=== PATIENT | male | born 1970 | race Caucasian/White ===

== ENCOUNTER 2021-05-06 15:05 | Emergency (ER) | payer OTHER, SELFPAY ==
[2021-05-06] VITALS (7 sets, daily range): BP systolic 170–195; BP diastolic 98–102; PULSE 60–79; RESP 20; TEMP 37; O2SAT 97–99; BMI 26.5
--- NOTE | 2021-05-06 15:24 | ED_ITS ---
HPI - Extremity Problem General Chief complaint: Extremity Problem,Nontraumatic Stated complaint: [place], pain in left arm Time Seen by Provider: 05/06/21 15:21 Source: patient and family Mode of arrival: Ambulatory Limitations: no limitations History of Present Illness HPI Narrative: This is a 51-year-old male who comes with complaint of left upper extremity pain which has been present for the past 2 weeks intermittent will typically have episodes of 30 seconds to 1 minute that then start to improve. He gets tightness in his arm the upper arm like a blood pressure cuff that super tight. He states he gets numbness and spasming of his hand and fingers and the 4th and 5th fingers will sometimes have a bluish discoloration. Patient states he did have an injury to the artery in his hand just at the base of the palm. He states that they attempted to reopen it because it was blocked. He states that this was unsuccessful any year later he was re-evaluated they thought he had a blood clot put him on anticoagulation for 3 months and then to cleared him medically cleared. Patient states the initial injury was from sitting in a shower with both hands down pushing up from prolonged. And his 2nd episode seemed to be caused by closing the tailgate of a truck with his hand. Patient states he has not had any additional injuries. He does take Depakote for bipolar, Ambien, Xanax and Janumet for diabetes. Besides the intervention on his arm he has not had any prior surgeries. He is allergic to penicillin, Keflex, abuse and chocolate. Smokes a pack per day, denies EtOH or any illicit drugs or IV drugs. He states he was seen at the hospital in [place], [place] in 2018 and 2019. Related Data Previous Rx's Medication Instructions Recorded oxycodone 5 mg tablet 5 mg PO QID PRN #10 tab 05/06/21 Allergies Allergy/AdvReac Type Severity Reaction Status Date / Time cephalexin [From Keflex] Allergy Verified 05/06/21 17:34 Penicillins Allergy Verified 05/06/21 17:34 Review of Systems Review of Systems ROS Unobtainable: All systems reviewed & are unremarkable except as noted in HPI and below Patient History Social History Smoking Status: Current every day smoker Smoking Status: Current every day smoker alcohol intake frequency: 0-2 drinks per day Substance Use Type: does not use Exam Narrative Exam Narrative: GENERAL: Alert and oriented x three, male in mild distress. Patient did have an episode while I was evaluating him and does appear uncomfortable. HEENT: Head normocephalic, atraumatic, EOMI, pupils reactive, face symmetric, moist mucous membranes NECK: Supple, full range of motion CARDIOVASCULAR: Regular rate and rhythm without murmurs, rubs or gallops. RESPIRATORY: Breath sounds equal bilaterally, no wheezes rales or rhonchi. ABDOMEN: Soft, nontender. Normoactive bowel sounds all 4 quadrants. No guarding or rebound, rigidity, no mass : No CVA tenderness EXTREMITIES: Normal range of motion, no clubbing or edema. Neurovascularly intact. Patient has cap refill less than 2 seconds in all 10 fingers. He has 2+ radial pulse bilaterally. He has full range of motion but while he states his arm is spasming he does appear to have some curling of his fingers particularly 2nd 4th but I can easily straighten them. 5/5 muscle strength. Patient does not have any obvious discoloration that I can appreciate on exam. NEUROLOGICAL: Cranial nerves II through XII grossly intact. Moving all extremities SKIN: Warm, dry, no petechiae, no rashes or lesions. Initial Vital Signs Initial Vital Signs: Vital Signs Temperature 98.6 F 05/06/21 15:13 Pulse Rate 79 05/06/21 15:13 Respiratory Rate 20 05/06/21 15:13 Blood Pressure 195/102 H 05/06/21 15:13 Pulse Oximetry 99 05/06/21 15:13 Course Orders Ordered: ED Orders 05/06/21 15:18 Complete Blood Count AUTO DIFF Stat Comprehensive Metabolic Panel Stat D Dimer Stat Lipase Stat Partial Thromboplastin Time Stat Prothrombin Time INR Stat Troponin & CK Cardiac Panel Stat 05/06/21 15:27 XR chest 1V Stat 05/06/21 16:03 US periph venous up extrem lt Stat Discontinued Medications Morphine Sulfate (Morphine 4 Mg/Ml Inj) 4 mg IV NOW ONE Stop: 05/06/21 17:28 Last Admin: 05/06/21 17:33 Dose: 4 mg Documented by: MARSHA Vital Signs Vital signs: Vital Signs - 8 hr 05/06/21 15:13 05/06/21 15:48 05/06/21 16:00 Temperature 98.6 F Pulse Rate 79 62 74 Respiratory Rate 20 Blood Pressure 195/102 H Pulse Oximetry 99 98 99 05/06/21 16:30 05/06/21 17:00 05/06/21 17:30 Temperature Pulse Rate 60 60 68 Respiratory Rate Blood Pressure Pulse Oximetry 99 97 98 05/06/21 17:31 Temperature Pulse Rate 64 Respiratory Rate Blood Pressure 170/98 H Pulse Oximetry 98 MDM - Extremity (Nontraumatic) Lab Data Result diagrams: 05/06/21 15:18 05/06/21 15:18 Labs: Lab Results 05/06/21 05/06/21 05/06/21 Range/Units 15:18 15:18 15:18 WBC 10.7 (4.5-11.0) X10^3/uL RBC 4.53 (4.5-5.9) X10^6/uL Hgb 13.7 (13.5-17.5) g/dL Hct 40.2 L (41-53) % MCV 88.7 (80-100) fL MCH 30.3 (26-34) PG MCHC 34.1 (30-36) % RDW 13.6 (11.6-14.8) % Plt Count 155 (150-400) X10^3/uL Neut % (Auto) 48.7 L (50-75) % Lymph % (Auto) 36.8 (25-40) % [place] % (Auto) 11.1 (3-14) % Eos % (Auto) 2.1 (2-4) % Baso % (Auto) 1.3 (0-2) % Neut # (Auto) 5200 (0213-4692) /uL Lymph # (Auto) 4000 (1655-0561) /uL [place] # (Auto) 1200 H (0-900) /uL Eos # (Auto) 200 (0-450) /uL Baso # (Auto) 100 (0-100) /uL PT 11.8 (10.1-12.7) SECONDS INR 1.1 (0.9-1.3) APTT 32 (26.4-36.2) SECONDS D-Dimer < 200 (<230) ng/mL Sodium (137-145) mmol/L Potassium (3.4-5.1) mmol/L Chloride (98-107) mmol/L Carbon Dioxide (22-32) mmol/L BUN (9-20) mg/dL Creatinine (0.66-1.25) mg/dL Estimated GFR (>60) mL/min BUN/Creatinine Ratio (6-22) Glucose (70-100) mg/dL Calcium (8.4-10.2) mg/dL Total Bilirubin (0.2-1.3) mg/dL AST (17-59) IU/L ALT (<50) IU/L Alkaline Phosphatase (38-126) U/L Total Creatine Kinase (55-170) U/L CK-MB (CK-2) (<2.37) ng/mL CK-MB (CK-2) Rel Index (1.5-5.0) % Troponin I (0.01-0.034) ng/mL Total Protein (6.3-8.2) g/dL Albumin (3.5-5.0) g/dL Globulin (1.7-4.1) g/dL Albumin/Globulin Ratio (1.0-2.8) Lipase (23-300) U/L // Range/Units 15:18 WBC (4.5-11.0) X10^3/uL RBC (4.5-5.9) X10^6/uL Hgb (13.5-17.5) g/dL Hct (41-53) % MCV (80-100) fL MCH (26-34) PG MCHC (30-36) % RDW (11.6-14.8) % Plt Count (150-400) X10^3/uL Neut % (Auto) (50-75) % Lymph % (Auto) (25-40) % [place] % (Auto) (3-14) % Eos % (Auto) (2-4) % Baso % (Auto) (0-2) % Neut # (Auto) (4896-2102) /uL Lymph # (Auto) (5162-5348) /uL [place] # (Auto) (0-900) /uL Eos # (Auto) (0-450) /uL Baso # (Auto) (0-100) /uL PT (10.1-12.7) SECONDS INR (0.9-1.3) APTT (26.4-36.2) SECONDS D-Dimer (<230) ng/mL Sodium 140 (137-145) mmol/L Potassium 4.4 (3.4-5.1) mmol/L Chloride 105 (98-107) mmol/L Carbon Dioxide 28 (22-32) mmol/L BUN 18 (9-20) mg/dL Creatinine 0.88 (0.66-1.25) mg/dL Estimated GFR > 60.0 (>60) mL/min BUN/Creatinine Ratio 20.5 (6-22) Glucose 132 H (70-100) mg/dL Calcium 9.8 (8.4-10.2) mg/dL Total Bilirubin 0.5 (0.2-1.3) mg/dL AST 39 (17-59) IU/L ALT 18 (<50) IU/L Alkaline Phosphatase 45 (38-126) U/L Total Creatine Kinase 229 H (55-170) U/L CK-MB (CK-2) 4.03 H (<2.37) ng/mL CK-MB (CK-2) Rel Index 1.8 (1.5-5.0) % Troponin I < 0.012 (0.01-0.034) ng/mL Total Protein 7.5 (6.3-8.2) g/dL Albumin 4.5 (3.5-5.0) g/dL Globulin 3.0 (1.7-4.1) g/dL Albumin/Globulin Ratio 1.5 (1.0-2.8) Lipase 293 (23-300) U/L Imaging Data Chest x-ray: Radiologist's Impression: [address] [address] XRay Report Signed Patient: Navneet Monroe MR#: [id number] : 1970 Acct:[id number] Age/Sex: 51 / M Date of Service: 05/06/21 Loc: ED Accession Number: [id number] ?? Procedure: XR chest 1V Ordering Provider: Marichuy Morales D.O. PROCEDURE:? XR CHEST 1V ? INDICATIONS:? left arm pain, spasms ? TECHNIQUE:? One view of the chest was acquired.? ? COMPARISON:? None. ? FINDINGS:? ? Surgical changes and devices:? None.? ? Lungs and pleura:? Lungs are clear.? No pleural effusions or pneumothorax.? ? Mediastinum:? Mediastinal contours appear normal.? Heart size is normal.? ? Bones and chest wall:? No suspicious bony lesions.? Overlying soft tissues appear unremarkable.? ? IMPRESSION:? No acute cardiopulmonary pathology. ? ? Dictated by: Cecil Dozier M.D. on 05/06/2021 at 15:44 ? ? Approved by: Cecil Dozier M.D. on 05/06/2021 at 15:46?? US - DVT: Radiologist's Impression: [address] [address] Ultrasound Report Signed Patient: Navneet Monroe MR#: [id number] : 1970 Acct:[id number] Age/Sex: 51 / M Date of Service: 05/06/21 Loc: ED Accession Number: [id number] ?? Procedure: US periph venous up extrem lt Ordering Provider: Marichuy Morales D.O. PROCEDURE:? US PERIPH VENOUS UP EXTREM LT ? INDICATIONS:? ARM PAIN. INTERMITTENT SPASMS. ? TECHNIQUE:? Real-time imaging, as well as color and pulse Doppler interrogation, was performed of the left upper extremity deep veins from the inferior neck to the antecubital fossa.? ? COMPARISON:? None. ? FINDINGS:? The internal jugular vein, visualized portions of the subclavian vein, axillary, and brachial veins are free of intraluminal thrombus.? Where physically possible, the veins are normally compressible.? Color and pulse Doppler demonstrate normal intraluminal flow, with expected phasicity and pulsatility.? Additional scanning of the cephalic and basilic veins of the superficial system demonstrate normal compressibility, without thrombus.? ? IMPRESSION:? No DVT in the left upper extremity. ? ? Dictated by: Harika Reyes M.D. on 05/06/2021 at 17:25 ? ? Approved by: Harika Reyes M.D. on 05/06/2021 at 17:34?? MDM Narrative Medical decision making narrative: This is a 51-year-old male comes in with left arm pain. Patient had a arterial injury in 2018 which she states they attempted to open the blockage was in the palm of the hand. He states it was unsuccessful and he later had concern for DVT and was on thinners for 3 months and ultimately medically cleared. He states he was told he may be never actually had a DVT. He has had intermittent symptoms that are more frequent at this time. He sometimes has discoloration of the 4th and 5th fingers but it is not visualized here by myself in the department. He was sent by primary care for cardiac workup which is negative but seems less likely a cause. His DVT ultrasound is negative. He does not have any acute changes on exam that make me suspicious for arterial injury today. Patient saw vascular surgery in [place] and was given options for local vascular surgery for follow-up as well as asked to return to follow-up with his primary care in the short term. Was given a short-term prescription of oral pain medication and asked to return for any new or acutely worsening symptoms. Discharge Plan Departure Patient Disposition: Home Clinical Impression: Chronic pain of left upper extremity Instructions: DI for Arm Pain Activity Restrictions/Additional Instructions: Follow up with Dr. Seay for recheck. Your imaging labs and DVT ultrasound today are negative. It may be helpful to follow up with a vascular surgeon if he continued to have frequent symptoms as these are similar to when you had your prior injury. You may take up to a 1000 mg every 8 hours and/or ibuprofen up to 800 mg every 8 hours. If in adequate you can take narcotic pain medication as prescribed. Prescription sent to [facility] in [place]. Return for fevers, new or worsening symptoms, if your fingers or hand or arm turn blue, white, if you have persistent loss of sensation, inability to move your fingers or hands, increasing swelling, redness or warmth of her or other new or concerning symptoms. Prescriptions: New oxycodone 5 mg tablet 5 mg PO QID PRN (Reason: pain) Qty: 10 RF: 0
--- NOTE | 2021-05-06 15:27 | DI.RAD.S_ITS ---
PROCEDURE: XR CHEST 1V INDICATIONS: left arm pain, spasms TECHNIQUE: One view of the chest was acquired. COMPARISON: None. FINDINGS: Surgical changes and devices: None. Lungs and pleura: Lungs are clear. No pleural effusions or pneumothorax. Mediastinum: Mediastinal contours appear normal. Heart size is normal. Bones and chest wall: No suspicious bony lesions. Overlying soft tissues appear unremarkable. IMPRESSION: No acute cardiopulmonary pathology. Dictated by: Cecil Dozier M.D. on 05/06/2021 at 15:44 Approved by: Cecil Dozier M.D. on 05/06/2021 at 15:46
[2021-05-06 15:37] LABS: INR 1.1 (0.9-1.3); Prothrombin Time 11.8 SECONDS (10.1-12.7)
[2021-05-06 15:38] LABS: D Dimer < 200 ng/mL (<230)
[2021-05-06 15:40] LABS: PTT Partial Thromboplastin Tim 32 SECONDS (26.4-36.2)
[2021-05-06 15:41] LABS: Add Manual Diff / Slide Review NO; Alanine Aminotransferase 18 IU/L (<50); Albumin 4.5 g/dL (3.5-5.0); Albumin Globulin Ratio 1.5 (1.0-2.8); Alkaline Phosphatase 45 U/L (38-126); Aspartate Aminotransferase 39 IU/L (17-59); BUN Creatinine Ratio 20.5 (6-22); Basophils Absolute Auto 100 /uL (0-100); Basophils Percent Auto 1.3 % (0-2); Bilirubin Total 0.5 mg/dL (0.2-1.3); Blood Urea Nitrogen 18 mg/dL (9-20); Calcium 9.8 mg/dL (8.4-10.2); Carbon Dioxide 28 mmol/L (22-32); Chloride 105 mmol/L (98-107); Creatine Kinase 229 U/L (55-170); Eosinophils Absolute Auto 200 /uL (0-450); Eosinophils Percent Auto 2.1 % (2-4); Estimated Glomerular Filt Rate > 60.0 mL/min (>60); Glucose 132 mg/dL (70-100); HEMOLYSIS < 15 (0-50); Hematocrit 40.2 % (41-53); Hemoglobin 13.7 g/dL (13.5-17.5); Lipase 293 U/L (23-300); Lymphocytes Absolute Auto 4000 /uL (1100-4500); Lymphocytes Percent Auto 36.8 % (25-40); Mean Corpuscular HGB Conc 34.1 % (30-36); Mean Corpuscular Hemoglobin 30.3 PG (26-34); Mean Corpuscular Volume 88.7 fL (80-100); Monocytes Absolute Auto 1200 /uL (0-900); Monocytes Percent Auto 11.1 % (3-14); Neutrophils Absolute Auto 5200 /uL (1500-7000); Neutrophils Percent Auto 48.7 % (50-75); Platelet Count 155 X10^3/uL (150-400); Potassium 4.4 mmol/L (3.4-5.1); Red Blood Cell Count 4.53 X10^6/uL (4.5-5.9); Red Cell Distribution Width 13.6 % (11.6-14.8); Sodium 140 mmol/L (137-145); Total Protein 7.5 g/dL (6.3-8.2); White Blood Cell Count 10.7 X10^3/uL (4.5-11.0)
[2021-05-06 15:52] LABS: Troponin I < 0.012 ng/mL (0.01-0.034)
[2021-05-06 15:56] LABS: CKMB % Relative Index 1.8 % (1.5-5.0); Creatine Kinase MB 4.03 ng/mL (<2.37)
--- NOTE | 2021-05-06 16:03 | DI.US.S_ITS ---
PROCEDURE: US PERIPH VENOUS UP EXTREM LT INDICATIONS: ARM PAIN. INTERMITTENT SPASMS. TECHNIQUE: Real-time imaging, as well as color and pulse Doppler interrogation, was performed of the left upper extremity deep veins from the inferior neck to the antecubital fossa. COMPARISON: None. FINDINGS: The internal jugular vein, visualized portions of the subclavian vein, axillary, and brachial veins are free of intraluminal thrombus. Where physically possible, the veins are normally compressible. Color and pulse Doppler demonstrate normal intraluminal flow, with expected phasicity and pulsatility. Additional scanning of the cephalic and basilic veins of the superficial system demonstrate normal compressibility, without thrombus. IMPRESSION: No DVT in the left upper extremity. Dictated by: Harika Reyes M.D. on 05/06/2021 at 17:25 Approved by: Harika Reyes M.D. on 05/06/2021 at 17:34
[2021-05-06] MEDS: MORPHINE 4 MG/ML INJ IV (17:33)
== END 2021-05-06 18:38 | disposition home or self-care (01) ==
PROVIDERS: Emergency Provider Emergency Medicine
DX: M79.602 Pain in left arm (principal); R20.0 Anesthesia of skin; M62.838 Other muscle spasm
CPT/HCPCS: 71045; 80053; 82550; 82553; 83690; 84484; 85025; 85379; 85610; 85730; 93005; 93971; 96374; 99284; J2270

== ENCOUNTER → 2023-07-08 15:43 | Outpatient (CLI) | payer OTHER, SELFPAY ==
--- NOTE | 2023-07-08 | DI.US.S_ITS ---
PROCEDURE: US INJECT OR DRAIN JOINT INDICATIONS: BICIPITAL TENDINITIS, LEFT SHOULDER TECHNIQUE: The indications, alternatives, benefits, risks, and complications of the procedure were explained to the patient. Written informed consent was obtained and placed in the chart. The patient was placed in an appropriate position on the ultrasound table, and a site was chosen for percutaneous access under ultrasound guidance. Local anesthetic was administered using a 1% lidocaine solution. A hypodermic needle was then used to access the left biceps tendon sheath. Needle tip was confirmed by real time ultrasound imaging, followed by steroid administration. The needle was then withdrawn, and a bandage applied to the puncture site. COMPARISON: None. FINDINGS: Site injected: Left biceps tendon sheath. Medications injected: 4 mL of 40 mg/mL method prednisone and 0.5% Ropivacaine mixture. Complications: None. Exam was well tolerated. IMPRESSION: Successful ultrasound guided administration of steroid and anaesthetic solution into the left biceps tendon sheath. Dictated by: Baljit Reyes M.D. on 07/08/2023 at 17:52 Approved by: Baljit Reyes M.D. on 07/08/2023 at 17:54
== END ==
LOC: US 15:44
PROVIDERS: PCP Nurse Practitioner Acute Care; Referring Provider Physician Assistant Surgical; Visit Provider Physician Assistant Surgical
DX: S46.012A Strain of muscle(s) and tendon(s) of the rotator cuff of left shoulder, initial encounter (principal); M75.22 Bicipital tendinitis, left shoulder
CPT/HCPCS: 20611